=== PATIENT | female | born 1955 | race Caucasian/White ===

== ENCOUNTER 2018-09-12 10:27 | Day surgery (SDC) | payer OTHER ==
[~2018-09-12 10:27] MED LIST: SEVOFLURANE 15 MIN
[2018-09-12] MEDS ORDERED: MEPERIDINE 100 MG INJ (16:35)
[2018-09-12] MEDS ORDERED: ONDANSETRON 4 MG INJ (16:35)
[2018-09-12] MEDS ORDERED: CIPROFLOXACIN 400MG/D5W 200 ML (16:35)
[2018-09-12] MEDS ORDERED: LIDOCAINE 2% (SDV) 5 ML INJ (16:35)
[2018-09-12] MEDS ORDERED: PROPOFOL 20 ML (16:35)
[2018-09-12] MEDS ORDERED: METOCLOPRAMIDE 10 MG INJ (16:36)
[2018-09-12] MEDS ORDERED: morphine (1 MG/ML) 10ML SYRINGE IV ×3 (17:00)
[2018-09-12] MEDS ORDERED: DIPHENHYDRAMINE 50 MG INJ IV (17:00)
[2018-09-12] MEDS ORDERED: OXYCODONE/ACETAMINOPHEN (5/325) TAB PO ×2 (17:00)
[2018-09-12] MEDS ORDERED: LABETALOL HCL 20MG INJ IV (17:00)
[2018-09-12] MEDS ORDERED: MEPERIDINE 25 MG INJ IV (17:00)
[2018-09-12] MEDS ORDERED: METOCLOPRAMIDE 10 MG INJ IV (17:00)
[2018-09-12] MEDS ORDERED: hydrALAzine 20 MG INJ IV (17:00)
[2018-09-12] MEDS ORDERED: MIDAZOLAM 1 MG/ML 2 ML INJ IV (17:00)
[2018-09-12] MEDS ORDERED: EPHEDrine SULFATE 50 MG/5 ML SYG IV (17:00)
[2018-09-12] MEDS ORDERED: ONDANSETRON 4 MG INJ IV (17:00)
[2018-09-12] MEDS ORDERED: FENTAnyl 50 MCG/ML VIAL IV ×2 (17:00)
[2018-09-12] MEDS ORDERED: ATROPINE 1 MG/10 ML SYRINGE (17:13)
[2018-09-12] MEDS ORDERED: EPHEDrine SULFATE 50 MG/5 ML SYG (17:13)
[2018-09-12] MEDS: BUPIVACAINE 0.5% (SDV) 30 ML INJ (17:27)
[2018-09-12] MEDS: POLYMYXIN/BACITRACIN 1L IRRIG (17:41)
[2018-09-12] MEDS ORDERED: ROPIVACAINE 0.5 % 30 ML VIAL (18:08)
[2018-09-12] MEDS: FENTAnyl 50 MCG/ML VIAL IV (19:20)
== END 2018-09-12 20:25 | disposition home or self-care (01) ==
LOC: SDS 10:27
DX: S62.011D Displaced fracture of distal pole of navicular [scaphoid] bone of right wrist, subsequent encounter for fracture with routine healing (principal); W19.XXXD Unspecified fall, subsequent encounter
CPT/HCPCS: 25628